=== PATIENT | male | born 1985 | race Asian ===

== ENCOUNTER 2023-01-19 10:51 | Outpatient (CLI) | payer BC, SELFPAY | END 2023-01-19 10:52 | disposition home or self-care (01) | PROVIDERS: Visit Provider Nurse Practitioner Family | DX: Z13.6 Encounter for screening for cardiovascular disorders (principal); Z13.0 Encounter for screening for diseases of the blood and blood-forming organs and certain disorders involving the immune mechanism; Z13.228 Encounter for screening for other metabolic disorders | CPT/HCPCS: 80053; 80061; 85025 ==